=== PATIENT | female | born 1930 | race Caucasian/White ===

== ENCOUNTER → 2018-08-10 | Outpatient (CLI) | payer MEDICARE, OTHER | LOC: M.RAD 10:51 | DX: S32.020A Wedge compression fracture of second lumbar vertebra, initial encounter for closed fracture (principal); M16.0 Bilateral primary osteoarthritis of hip; M43.16 Spondylolisthesis, lumbar region; G89.29 Other chronic pain; X58.XXXA Exposure to other specified factors, initial encounter; Y93.89 Activity, other specified; Y92.89 Other specified places as the place of occurrence of the external cause; Y99.8 Other external cause status ==

== ENCOUNTER → 2018-09-04 | Outpatient (CLI) | payer MEDICARE, OTHER ==
--- NOTE | 2018-09-04 16:39 | 2DMMODE ---
[place] [address] 2 D/M-MODE ECHOCARDIOGRAM Name: CONNILSA Room: [facility]#: [id number] Admission: 09/04/18 Attend Phys: Jolie Araiza Discharge: Date of : 32 Date of Service: 09/04/18 1638 Report #: [id number] THIS REPORT FOR: //name// APPROVED REPORT Study performed: 09/04/2018 15:32:39 EXAM: Comprehensive 2D, Doppler, and color-flow Echocardiogram Patient Location: Out-Patient Status: routine BSA: 1.64 HR: 60 bpm BP: 102/52 mmHg Other Information Study Quality: Good Indications Murmur Hypertension/HDD 2D Dimensions IVSd: 10.67 (7-11mm) LVOT Diam: 20.46 (18-24mm) LVDd: 44.25 mm PWd: 8.16 (7-11mm) Ascending Ao: 28.35 (22-36mm) LVDs: 24.94 (25-40mm) Aortic Root: 30.11 mm Volumes Left Atrial Volume (Systole) LA ESV Index: 17.40 mL/m2 Aortic Valve AoV Peak Abhi.: 3.57 m/s AO Peak Gr.: 51.06 mmHg LVOT Max P.59 mmHg AO Mean Gr.: 31.98 mmHg LVOT Mean P.13 mmHg LVOT Max V: 1.07 m/s AO V2 VTI: 83.75 cm LVOT Mean V: 0.66 m/s JAS (VTI): 1.12 cm2 LVOT V1 VTI: 28.49 cm AI [place]: 1.57 m/s2 AI PHT: 527.99 ms Mitral Valve MV Peak Gr.: 8.04 [place] [address] 2 D/M-MODE ECHOCARDIOGRAM Name: NILSA ANDUJAR Room: [facility]#: [id number] Admission: 09/04/18 Attend Phys: Jolie Araiza Discharge: Date of : 32 Date of Service: 09/04/18 1638 Report #: [id number] MV Mean Gr.: 2.34 mmHg E/A Ratio: 0.58 MV Decel. Time: 308.72 ms MV E Max Abhi.: 0.67 m/s MV PHT: 89.53 ms MVA (PHT): 2.46 cm2 TDI E/Lateral E': 11.17 E/Medial E': 13.40 Medial E' Abhi.: 0.05 m/s Lateral E' Abhi.: 0.06 m/s Pulmonary Valve PV Peak Abhi.: 0.89 m/s PV Peak Gr.: 3.14 mmHg Tricuspid Valve RAP Estimate: 5.00 mmHg TR Peak Gr.: 27.62 mmHg RVSP: 32.62 mmHg PA Pressure: 32.62 mmHg Left Ventricle The left ventricle is normal size. There is normal LV segmental wall motion. There is normal left ventricular wall thickness. Left ventricular systolic function is normal. The left ventricular ejection fraction is within the normal range. LVEF is 65%. Grade I - abnormal relaxation pattern. Right Ventricle The right ventricle is normal size. The right ventricular systolic function is normal. Atria Left atrium is mildly dilated. The right atrium size is normal. Aortic Valve Moderate aortic valve sclerosis. Mild aortic regurgitation. Moderate aortic stenosis. Mitral Valve Severe mitral annular calcification. Mild mitral regurgitation. No evidence of mitral valve stenosis. Tricuspid Valve The tricuspid valve is normal in structure. Mild [place] [address] 2 D/M-MODE ECHOCARDIOGRAM Name: NILSA ANDUJAR Room: [facility]#: [id number] Admission: 09/04/18 Attend Phys: Jolie Araiza Discharge: Date of : 32 Date of Service: 09/04/18 1638 Report #: [id number] Pulmonic Valve The pulmonary valve is normal in structure. There is no pulmonic valvular regurgitation. Great Vessels The aortic root is normal in size. IVC is normal in size and collapses >50% with inspiration. Pericardium There is no pericardial effusion. <Conclusion> The left ventricle is normal size. There is normal left ventricular wall thickness. Left ventricular systolic function is normal. The left ventricular ejection fraction is within the normal range. LVEF is 65%. Grade I - abnormal relaxation pattern. Left atrium is mildly dilated. Moderate aortic valve sclerosis. Mild aortic regurgitation. Moderate aortic stenosis. Severe mitral annular calcification. Mild mitral regurgitation. No evidence of mitral valve stenosis. The tricuspid valve is normal in structure. IVC is normal in size and collapses >50% with inspiration. There is no pericardial effusion. There is normal LV segmental wall motion. <ELECTRONICALLY SIGNED> By: Jason Monique MD, FACC 09/04/18 1638 [id number] Jason Monique MD, FACC /INF
== END ==
LOC: M.CRD 08-28 15:00
DX: I51.7 Cardiomegaly (principal); I35.8 Other nonrheumatic aortic valve disorders; I35.0 Nonrheumatic aortic (valve) stenosis; R01.1 Cardiac murmur, unspecified; I10 Essential (primary) hypertension

== ENCOUNTER → 2018-09-07 | Outpatient (CLI) | payer MEDICARE, OTHER ==
[2018-09-07 10:41] LABS: CALCIUM 9.7 mg/dL (8.5-10.1); CREATININE 1.4 mg/dL (0.6-1.3); POTASSIUM 4.4 mmol/L (3.5-5.1)
== END ==
LOC: M.LAB 10:10
PROVIDERS: Nurse Practitioner
DX: I10 Essential (primary) hypertension (principal)

== ENCOUNTER → 2018-10-05 | Outpatient (CLI) | payer MEDICARE, OTHER ==
[2018-10-05 12:03] LABS: CALCIUM 9.3 mg/dL (8.5-10.1); CREATININE 1.3 mg/dL (0.6-1.3); POTASSIUM 4.5 mmol/L (3.5-5.1)
== END ==
LOC: M.LAB 11:28
PROVIDERS: Internal Medicine Cardiovascular Disease
DX: I10 Essential (primary) hypertension (principal)

== ENCOUNTER → 2019-02-19 | Outpatient (CLI) | payer MEDICARE, OTHER ==
[~2019-02-19] MED LIST: ASPIR 8181 MG PO; CARVEDILOL12.5 MG PO; LASIX 40 MG TAB40 M2 PO; LISINOPRIL10 MG PO; MEDROLDOSEPACK PO; MIRALAX17 GM PO; TYLENOL EXTRA500 MG PO
--- NOTE | ~2019-02-19 | PAINCON ---
[address] [address] PAIN MANAGEMENT CONSULTATION Name: NILSA ANDUJAR Room: [facility]#: [id number] Admission: 02/19/19 Attend Phys: Gini Ramirez MD Discharge: Date of : 32 Report #: [id number] THIS REPORT FOR: //name// CC: Shae Ramirez DATE OF SERVICE: 02/19/2019 PRIMARY CARE PHYSICIAN: Dr. Shae Rodriguez. CHIEF COMPLAINT: Burning, aching pain in the legs. HISTORY OF PRESENT ILLNESS: The patient is an 88-year-old female who has been referred to the pain clinic for evaluation. The patient complains of pain and discomfort with burning and aching sensation down in her legs. 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 Pain is improved when she is sitting and notes that use of a heating pad can be helpful. She has tried sports creams. Describes as continuous, burning, cramping, aching, and describes it as a 10/10. She has noted some pain improvement. She is taking prednisone. She has tried Tylenol. She notes some pain and discomfort in her shoulders and her hips as well. Feels that this pain limits all her activities. Has difficulty walking, standing, going from a sitting to standing, lifting and bending activities. She does use a cane to ambulate. ALLERGIES: PNEUMOCOCCUS VACCINES, SULFA. CURRENT MEDICATIONS: Tylenol 500 mg p.r.n., aspirin 81 mg, Coreg 12.5 mg, vitamin D3, lisinopril 20 mg by mouth, Icy Hot gel topically, vitamin, multivitamins, GlycoLax 17 g, Mevacor has been used in the past, has been discontinued. PAST MEDICAL HISTORY: 1. Chronic back pain, colon cancer, COPD, history of heart murmur, hearing loss, hyperlipidemia. 2. Hypertension. 3. Peripheral artery disease and stroke in 2010. PAST SURGICAL HISTORY: Appendectomy, arterial graft artery bypass on the right, lower extremity, colon surgery, partial colectomy for cancer, cyst removal, multiple, ganglion cyst excision, knee surgery, replacement total knee on the right, stent placement, left lower extremity, tonsillectomy. SOCIAL HISTORY: Lives with her daughter. She is retired. REVIEW OF SYSTEMS: Questionnaire, recent weight change, fatigue, wears glasses, [place] [address] PAIN MANAGEMENT CONSULTATION Name: NILSA ANDUJAR Room: [facility]#: [id number] Admission: 02/19/19 Attend Phys: Gini Ramirez MD Discharge: Date of : 31 Report #: [id number] hearing loss, heart trouble, shortness of breath, abdominal pain, joint pain, joint stiffness, weakness of muscles and joints, muscle pain, cramps, back pain, difficulty walking; varicose veins, dizziness, lightheadedness, numbness and tingling, memory loss, confusion, slow to heal, bleeding tendencies. PAIN CLINIC ASSESSMENT/PQRS: 1. The patient has arthritic changes, has had knee replacement. The patient is not being treated for rheumatoid arthritis. 2. Height 5 feet 1 inch, weight 157 pounds, BMI is 29. 3. Vital signs: Blood pressure 133/64, heart rate 60, respiratory rate 16, room air saturation 91%, temperature 98.1. 4. Pain intensity 12/30. 5. Fall history: The patient has not fallen in the last 3 months. 6. Blood thinner. The patient is not on a blood thinning medication. 7. Hypertension. The patient is being treated for hypertension. 8. Opioids greater than 6 weeks. The patient is not on any opioid medication on a regular basis. 9. Functional assessment tool, low for opioid use. 10. Recreational drug use. The patient denies use of recreational drugs. 11. Tobacco: The patient stopped smoking 7 years ago. PHYSICAL EXAMINATION: GENERAL: The patient is a well-developed, well-nourished white female. Appears her stated age. She is alert and oriented x 3. Her affect is appropriate. Speech is fluent. HEENT: Normocephalic, atraumatic. Extraocular eye muscles intact. The patient wear glasses. The patient has pain and discomfort in the upper extremities in the left as well as in the right arm, describes a stabbing sensation when she does certain activities. HEART: History of murmur. ABDOMEN: Nontender. Bowel sounds present. The patient with complaints of pain in the lower extremity, in the right as well as the left lower extremity. History of what sounds like femoral bypass graft. IMPRESSION: 1. Chronic pain involving the lower extremities as well as right and left hip pain. 2. Chronic back pain. 3. Colon cancer. 4. Chronic obstructive pulmonary disease. 5. History of heart murmur. 6. Hearing loss. 7. Hyperlipidemia. 8. Hypertension. 9. Peripheral artery disease. 10. [place] [address] [address] PAIN MANAGEMENT CONSULTATION Name: NILSA ANDUJAR Room: [facility] Irina#: [id number] Admission: 02/19/19 Attend Phys: Gini Ramirez MD Discharge: Date of : 31 Report #: [id number] RECOMMENDATIONS: I had a long talk with the patient and her family member. At this juncture, it is somewhat difficult to attend all of the problems at one time. Possible reason for pain in the lower extremity could be that of vascular insufficiency. We discussed and described the reasons for vascular insufficiency. She has had what sounds like fem-pop treatments. We discussed the problems of pain associated with neurogenic claudication. We also discussed problems with joints and arthritic changes. At this juncture, we will proceed with a generalized approach. The patient will be given a Medrol Dosepak. Hopefully, this will be helpful with the multitude of areas where she is having pain involving her hips, shoulders and down into her legs. We have given the patient a Medrol Dosepak. She will follow up in the near future. Hopefully, we will be able to ____ more specifically on the pain generators in areas which are more problematic in the future. We would like to thank you for letting us participate in her care. By: [id number]. Amrik Ramirez MD /MARK
== END ==
LOC: M.PC 01-22 08:20
DX: G89.29 Other chronic pain (principal); R20.8 Other disturbances of skin sensation; J44.9 Chronic obstructive pulmonary disease, unspecified; E78.5 Hyperlipidemia, unspecified; I10 Essential (primary) hypertension; Z85.038 Personal history of other malignant neoplasm of large intestine; Z86.73 Personal history of transient ischemic attack (TIA), and cerebral infarction without residual deficits; Z90.49 Acquired absence of other specified parts of digestive tract; Z96.651 Presence of right artificial knee joint; Z98.890 Other specified postprocedural states; Z88.2 Allergy status to sulfonamides; Z88.7 Allergy status to serum and vaccine; Z79.891 Long term (current) use of opiate analgesic; Z79.899 Other long term (current) drug therapy; Z87.891 Personal history of nicotine dependence

== ENCOUNTER → 2019-02-20 | Outpatient (CLI) | payer MEDICARE, OTHER ==
--- NOTE | 2019-02-20 16:21 | 2DMMODE ---
[place] [address] 2 D/M-MODE ECHOCARDIOGRAM Name: CONNILSA Room: [facility]#: [id number] Admission: 02/20/19 Attend Phys: Jolie Araiza Discharge: Date of : 32 Date of Service: 02/20/19 1620 Report #: [id number] THIS REPORT FOR: //name// APPROVED REPORT Study performed: 02/20/2019 15:18:24 EXAM: Comprehensive 2D, Doppler, and color-flow Echocardiogram Patient Location: Out-Patient BSA: 1.69 HR: 60 bpm BP: 124/60 mmHg Other Information Study Quality: Good Indications Aortic Valve Disease Hypertension/HDD 2D Dimensions IVSd: 9.67 (7-11mm) LVOT Diam: 17.78 (18-24mm) LVDd: 41.41 mm PWd: 9.67 (7-11mm) Ascending Ao: 27.36 (22-36mm) LVDs: 29.82 (25-40mm) Aortic Root: 27.38 mm Volumes Left Atrial Volume (Systole) LA ESV Index: 23.50 mL/m2 Aortic Valve AoV Peak Abhi.: 3.68 m/s AO Peak Gr.: 54.26 mmHg LVOT Max P.36 mmHg AO Mean Gr.: 31.11 mmHg LVOT Mean P.24 mmHg LVOT Max V: 1.04 m/s AO V2 VTI: 82.32 cm LVOT Mean V: 0.69 m/s JAS (VTI): 0.77 cm2 LVOT V1 VTI: 25.53 cm AI [place]: 1.02 m/s2 AI PHT: 830.59 ms Mitral Valve MV Mean Gr.: 2.31 mmHg E/A Ratio: 0.50 MV Decel. Time: 263.14 [place] [address] 2 D/M-MODE ECHOCARDIOGRAM Name: NILSA ANDUJAR Room: [facility]#: [id number] Admission: 02/20/19 Attend Phys: Jolie Araiza Discharge: Date of : 32 Date of Service: 02/20/19 1620 Report #: [id number] MV E Max Abhi.: 0.66 m/s MV PHT: 76.31 ms MVA (PHT): 2.88 cm2 TDI E/Lateral E': 6.00 E/Medial E': 13.20 Medial E' Abhi.: 0.05 m/s Lateral E' Abhi.: 0.11 m/s Pulmonary Valve PV Peak Abhi.: 0.89 m/s PV Peak Gr.: 3.17 mmHg Tricuspid Valve RAP Estimate: 5.00 mmHg TR Peak Gr.: 32.35 mmHg RVSP: 37.35 mmHg PA Pressure: 37.35 mmHg Left Ventricle The left ventricle is normal size. There is normal LV segmental wall motion. Mild concentric left ventricular hypertrophy. Left ventricular systolic function is normal. The left ventricular ejection fraction is within the normal range. LVEF is 60-65%. Grade I - abnormal relaxation pattern. Right Ventricle The right ventricle is normal size. The right ventricular systolic function is normal. Atria The left atrium size is normal. The right atrium size is normal. Aortic Valve The Aortic valve is sclerotic. Mild aortic regurgitation. Moderate aortic stenosis. Mitral Valve Moderate mitral annular calcification. Mild mitral regurgitation. No significant mitral valve stenosis. Tricuspid Valve The tricuspid valve is normal in structure. Trace tricuspid regurgitation. Pulmonic Valve The pulmonary valve is normal in structure. [place] [address] 2 D/M-MODE ECHOCARDIOGRAM Name: NILSA ANDUJAR Room: [facility]#: [id number] Admission: 02/20/19 Attend Phys: Jolie Araiza Discharge: Date of : 32 Date of Service: 02/20/19 1620 Report #: [id number] valvular regurgitation. Great Vessels The aortic root is normal in size. IVC is normal in size and collapses >50% with inspiration. Pericardium There is no pericardial effusion. <Conclusion> The left ventricle is normal size. Mild concentric left ventricular hypertrophy. Left ventricular systolic function is normal. The left ventricular ejection fraction is within the normal range. LVEF is 60-65%. Grade I - abnormal relaxation pattern. The right ventricle is normal size. The left atrium size is normal. The Aortic valve is sclerotic. Mild aortic regurgitation. Moderate aortic stenosis. Moderate mitral annular calcification. Mild mitral regurgitation. No significant mitral valve stenosis. The tricuspid valve is normal in structure. IVC is normal in size and collapses >50% with inspiration. There is no pericardial effusion. There is normal LV segmental wall motion. <ELECTRONICALLY SIGNED> By: Jason Monique MD, FACC 02/20/19 162 19 19 Jason Monique MD, FACC /INF
== END ==
LOC: M.CRD 15:00
DX: I08.0 Rheumatic disorders of both mitral and aortic valves (principal); I10 Essential (primary) hypertension; Z88.8 Allergy status to other drugs, medicaments and biological substances; Z88.2 Allergy status to sulfonamides; Z88.7 Allergy status to serum and vaccine

== ENCOUNTER 2020-08-13 11:42 | Emergency (ER) | payer MEDICARE, OTHER ==
[~2020-08-13] VITALS: Ht 154.9 cm; Wt 59.0 kg
[2020-08-13 12:01] LABS: URINE BILIRUBIN NEGATIVE (Negative); URINE BLOOD 3+ (Negative); URINE CLARITY CLEAR; URINE COLOR YELLOW; URINE GLUCOSE-RANDOM NEGATIVE (Negative); URINE KETONES NEGATIVE (Negative); URINE LEUKOCYTES NEGATIVE (Negative); URINE NITRITE NEGATIVE (Negative); URINE PROTEIN NEGATIVE (Negative); URINE SPECIFIC GRAVITY 1.025 (1.005-1.030); URINE UROBILINOGEN 0.2 E.U./dl (0.2-1.0)
[2020-08-13 12:16] LABS: SQUAMOUS >10 Many /LPF (0-3)
[2020-08-13 12:17] LABS: CASTS None Seen /LPF (None Seen); CRYSTALS None Seen /LPF (None Seen); MUCUS 4-6 Moderate strn/LPF (None Seen); URINE RBC 3-10 Few /HPF (0-2); URINE WBC None Seen /HPF (0-5)
[2020-08-13 12:26] LABS: ABSOLUTE EOSINOPHILS 0.2 thou/uL (0.0-0.7); ABSOLUTE LYMPHOCYTES 2.1 thou/uL (0.8-5.3); ABSOLUTE MONOCYTES 0.6 thou/uL (0.0-1.2); ABSOLUTE NEUTROPHILS 2.9 thou/uL (1.6-8.1); BASOPHILS 0.7 %; EOSINOPHILS 2.9 %; HEMATOCRIT 35.3 % (37.0-47.0); MCHC 33.9 g/dL (28.0-37.0); MCV 91.4 fL (80.0-100.0); MONOCYTES 10.2 %; MPV 8.3 fl. (7.2-11.1); NUCLEATED RBCS 0 /100WBC; PLATELET COUNT* 156 thou/uL (150-400); POLYS 50.2 %; RBC 3.86 mil/uL (4.20-5.00); RDW-CV 14.3 % (10.5-14.5); WBC 5.8 thou/uL (4.0-11.0)
[2020-08-13 12:33] LABS: CALCIUM 8.9 mg/dL (8.5-10.1); CREATININE 1.5 mg/dL (0.6-1.3); POTASSIUM 4.7 mmol/L (3.5-5.1)
[2020-08-13 12:37] LABS: ALBUMIN 3.6 g/dL (3.4-5.0); TOTAL BILIRUBIN 0.5 mg/dL (<0.1-1.0); TOTAL PROTEIN 7.3 g/dL (6.4-8.2)
[2020-08-13] MEDS ORDERED: KEFLEX500 M1 PO (13:34)
[2020-08-13 14:51] VITALS: BP 129/43
== END 2020-08-13 14:52 | disposition home or self-care (01) ==
LOC: M.ERS 11:42
PROVIDERS: Nurse Practitioner Psychiatric/Mental Health
DX: N39.0 Urinary tract infection, site not specified (principal); R31.9 Hematuria, unspecified; Z88.2 Allergy status to sulfonamides

== ENCOUNTER → 2020-10-27 | Outpatient (CLI) | payer MEDICARE, OTHER ==
[~2020-10-27] MED LIST changes: +KEFLEX500 M1 PO
--- NOTE | 2020-10-27 10:06 | 2DMMODE ---
[place] [address] 2 D/M-MODE ECHOCARDIOGRAM Name: NILSA ANDUJAR Room: [facility]#: [id number] Admission: 10/27/20 Attend Phys: Jolie Araiza Discharge: Date of : 32 Date of Service: 10/27/20 1006 Report #: [id number] THIS REPORT FOR: cc: Dilia Arana Linda J. DO Liston, Michael J. MD [facility] ~ APPROVED REPORT Study performed: 10/27/2020 08:10:56 EXAM: Comprehensive 2D, Doppler, and color-flow Echocardiogram Patient Location: Out-Patient BSA: 1.57 HR: 58 bpm BP: 120/72 mmHg Other Information Study Quality: Good Indications Aortic Valve Disease 2D Dimensions IVSd: 10.04 (7-11mm) LVOT Diam: 20.53 (18-24mm) LVDd: 43.02 mm PWd: 8.18 (7-11mm) Ascending Ao: 30.44 (22-36mm) LVDs: 22.30 (25-40mm) Aortic Root: 26.53 mm Volumes Left Atrial Volume (Systole) LA ESV Index: 24.40 mL/m2 Aortic Valve AoV Peak Abhi.: 4.05 m/s AO Peak Gr.: 65.60 mmHg LVOT Max P.04 mmHg AO Mean Gr.: 38.75 mmHg LVOT Mean P.06 mmHg LVOT Max V: 1.00 m/s AO V2 VTI: 109.94 cm LVOT Mean V: 0.67 m/s JAS (VTI): 0.87 cm2 LVOT V1 VTI: 28.87 cm AI [place]: 2.35 m/s2 AI PHT: 426.82 [place] [address] 2 D/M-MODE ECHOCARDIOGRAM Name: NILSA ANDUJAR Room: [facility]#: [id number] Admission: 10/27/20 Attend Phys: Jolie Araiza Discharge: Date of : 32 Date of Service: 10/27/20 1006 Report #: [id number] Mitral Valve E/A Ratio: 0.69 MV Decel. Time: 294.22 ms MV E Max Abhi.: 0.81 m/s MV PHT: 85.32 ms MVA (PHT): 2.58 cm2 TDI E/Lateral E': 13.50 E/Medial E': 16.20 Medial E' Abhi.: 0.05 m/s Lateral E' Abhi.: 0.06 m/s Pulmonary Valve PV Peak Abhi.: 0.80 m/s PV Peak Gr.: 2.55 mmHg Tricuspid Valve RAP Estimate: 5.00 mmHg TR Peak Gr.: 29.92 mmHg RVSP: 34.92 mmHg PA Pressure: 34.92 mmHg Left Ventricle The left ventricle is normal size. There is normal LV segmental wall motion. Mild concentric left ventricular hypertrophy. Left ventricular systolic function is normal. LVEF is 60-65%. Grade I - abnormal relaxation pattern. Right Ventricle The right ventricle is normal size. The right ventricular systolic function is normal. Atria Left atrium is mildly dilated. The right atrium size is normal. Aortic Valve Moderate aortic valve sclerosis. Mild aortic regurgitation. Moderate to severe aortic stenosis. Mitral Valve Moderate mitral annular calcification. Mild mitral regurgitation. No evidence of mitral valve stenosis. Tricuspid Valve The tricuspid valve is normal in structure. Mild tricuspid regurgitation. The RVSP is 40-[place] [address] 2 D/M-MODE ECHOCARDIOGRAM Name: NILSA ANDUJAR Room: [facility]#: [id number] Admission: 10/27/20 Attend Phys: Jolie Araiza Discharge: Date of : 32 Date of Service: 10/27/20 1006 Report #: [id number] Pulmonic Valve The pulmonary valve is normal in structure. There is no pulmonic valvular regurgitation. Great Vessels The aortic root is normal in size. IVC is normal in size and collapses >50% with inspiration. Pericardium There is no pericardial effusion. <Conclusion> The left ventricle is normal size. Mild concentric left ventricular hypertrophy. Left ventricular systolic function is normal. LVEF is 60-65%. Grade I - abnormal relaxation pattern. Left atrium is mildly dilated. Moderate aortic valve sclerosis. Moderate to severe aortic stenosis. Moderate mitral annular calcification. Mild mitral regurgitation. Mild tricuspid regurgitation. The RVSP is 40-45 mmHg. IVC is normal in size and collapses >50% with inspiration. <ELECTRONICALLY SIGNED> By: Sixto Mckenzie MD, FACC 10/27/20 1006 1006 100 Sixto Mckenzie MD, FACC /INF
== END ==
LOC: M.CRD 08:00
PROVIDERS: ATTEND Internal Medicine
DX: I08.3 Combined rheumatic disorders of mitral, aortic and tricuspid valves (principal)